=== PATIENT | male | born 1945 | race Caucasian/White ===

== ENCOUNTER 2017-03-15 09:38 | Day surgery (SDC) | payer MEDICARE ==
[~2017-03-15] VITALS: Ht 172.7 cm; Wt 93.0 kg
--- NOTE | 2017-03-15 11:24 | Operative Note ---
Colonoscopy ([facility]) Procedure date: 03/15/17 Date of : 49 Procedure:Colonoscopy Colonoscopy with cold snare polypectomy Indications: Mr. Serna is a 72-year-old gentleman who is here for diagnostic colonoscopy. The patient does state that he had a colonoscopy in [address] Adal Gomez M.D. which was normal in [facility]. The patient reports diarrhea that was up to 15 times daily. He responded to Xifaxan and subsequent psyllium and probiotic (align). The patient now has 2-3 bowel movements daily which are formed. He does have some gassiness but reports no bloating. He reports no rectal bleeding or mucus. He reports no weight loss, abdominal pain or family history of colon cancer. Performing Provider: Abelardo Pinto MD Referrring Provider: Carol Guerrero M.D. Sedation: MAC sedation Procedure: Prior to the procedure, a history and physical exam was performed, and patient medications and allergies were reviewed. The risks and benefits of the procedure and the sedation options and risks were discussed with the patient. All questions were answered and informed consent was obtained. Patient identification and proposed procedure were verified by the physician and the nurse. The patient was placed in a left lateral decubitus position. Throughout the procedure, the patient's blood pressure, pulse, and oxygen saturations were monitored continuously. Findings: On digital rectal examination there was normal rectal tone. There were no external hemorrhoids. The prostate was 2+, smooth, soft, symmetric without nodules. The colonoscope was introduced through the anal canal to the rectum and advanced to the cecum. The ileocecal valve and appendiceal orifice were identified. The scope was advanced a short distance into the ileum which appeared grossly normal. The scope was then withdrawn into the colon. There were 15 colon polyps identified in the cecum 2, ascending 4, transverse 4, descending 2 and sigmoid 3. These ranged in size from 3 -10 mm and were all removed via cold snare polypectomy. There were scattered diverticuli throughout the descending and sigmoid colon (LEFT colon). The rectum itself was normal. Upon retroflexion within the rectum there were grade 1 internal hemorrhoids. Impressions: 1. Colonic polyps 15 2. Left-sided diverticulosis 3. Grade 1 internal hemorrhoids Recommendations: I will follow up the polyp pathology and recommend repeat colonoscopy again in 1 year based upon the polyp histology and number and size of polyps. I would encourage fiber supplementation (psyllium) and probiotic on a long-term daily maintenance basis. Complications: None EBL (ml): 0 at 3867
[2017-03-15 12:58] VITALS: BP 134/74
== END 2017-03-15 12:10 | disposition home or self-care (01) ==
LOC: SDC 09:38
PROVIDERS: Internal Medicine Gastroenterology
PROC: 0DBL8ZX Excision of Transverse Colon, Via Natural or Artificial Opening Endoscopic, Diagnostic (ICD-10-PCS; 2017-03-15)
PROC: 0DBN8ZX Excision of Sigmoid Colon, Via Natural or Artificial Opening Endoscopic, Diagnostic (ICD-10-PCS; 2017-03-15)
PROC: 0DBM8ZX Excision of Descending Colon, Via Natural or Artificial Opening Endoscopic, Diagnostic (ICD-10-PCS; 2017-03-15)
PROC: 0DBH8ZX Excision of Cecum, Via Natural or Artificial Opening Endoscopic, Diagnostic (ICD-10-PCS; 2017-03-15)
PROC: 0DBK8ZX Excision of Ascending Colon, Via Natural or Artificial Opening Endoscopic, Diagnostic (ICD-10-PCS; principal; 2017-03-15 11:00)
DX: D12.0 Benign neoplasm of cecum (principal); D12.4 Benign neoplasm of descending colon; D12.5 Benign neoplasm of sigmoid colon; K57.30 Diverticulosis of large intestine without perforation or abscess without bleeding; K64.0 First degree hemorrhoids; E11.9 Type 2 diabetes mellitus without complications; K59.1 Functional diarrhea